=== PATIENT | male | born 1960 | race Caucasian/White ===

== ENCOUNTER 2024-05-14 12:23 | Emergency (ER) | payer OTHER ==
[~2024-05-14] VITALS: Ht 185.4 cm; Wt 102.1 kg
[2024-05-14 12:40] VITALS: TEMP 98.2
[2024-05-14 13:09] LABS: BASOPHILS % (AUTO) 0.4 % (0.0-2.0); EOSINOPHILS # (AUTO) 0.1 K/uL (0.0-0.7); EOSINOPHILS % (AUTO) 0.9 % (0.0-6.0); HEMATOCRIT 39 % (39-51); HEMOGLOBIN 13.6 g/dL (13.5-17.5); LYMPHOCYTES # (AUTO) 0.8 K/uL (0.8-4.8); LYMPHOCYTES % (AUTO) 11.6 % (20.0-44.0); MEAN CORPUSCULAR HEMOGLOBIN 30 PG (26.0-33.0); MEAN CORPUSCULAR HGB CONC 35 g/dl (31.0-36.0); MEAN CORPUSCULAR VOLUME 88 fL (80-96); MONOCYTES # (AUTO) 0.5 K/uL (0.1-1.30); MONOCYTES % (AUTO) 6.5 % (2.0-12.0); NEUTROPHILS # (AUTO) 5.6 K/uL (1.8-8.9); NEUTROPHILS % (AUTO) 80.6 % (43.0-81.0); PLATELET COUNT (AUTO) 197 K/uL (150-450); RED BLOOD CELL COUNT(AUTO) 4.47 MIL/uL (4.5-6.0); RED CELL DISTRIBUTION WIDTH 13.7 % (11.5-15.0); WHITE BLOOD COUNT (AUTO) 6.9 K/uL (4.3-11.0)
[2024-05-14 13:25] LABS: CALCIUM, SERUM 8.7 mg/dL (8.5-10.1); CARBON DIOXIDE 32 mmol/L (21-32); CHLORIDE 103 mmol/L (98-107); CREATININE 1.2 mg/dL (0.6-1.3); GLUCOSE 116 mg/dL (74-106); POTASSIUM 4.2 mmol/L (3.5-5.1); SODIUM SERUM 142 mmol/L (136-145); UREA NITROGEN, BLOOD 19 mg/dL (7-18)
[2024-05-14] MEDS ORDERED: MAG HYDROX/AL HYDROX/SIMETH 30 ML UDC ONE (14:05)
[2024-05-14] MEDS ORDERED: LIDOCAINE VISCOUS 2% UD 15 ML UDC ONE (14:06)
[2024-05-14] MEDS ORDERED: FAMOTIDINE/PF INJ 20 MG/2 ML VIAL IV ONE (14:06)
[2024-05-14] MEDS ORDERED: ASPIRIN EC 81 MG TABLET.DR PO ONE (14:06)
[2024-05-14] MEDS: ASPIRIN 81 MG TAB.CHEW PO ONE (14:52)
[2024-05-14] MEDS: FAMOTIDINE/PF INJ 20 MG/2 ML VIAL IV ONE (14:52)
[2024-05-14] MEDS: LIDOCAINE VISCOUS 2% UD 15 ML UDC MM ONE (14:52)
[2024-05-14] MEDS: MAG HYDROX/AL HYDROX/SIMETH 30 ML UDC PO ONE (14:52)
[2024-05-14] MEDS ORDERED: IV NS 0.9% 250 ML IV ONE (15:55)
[2024-05-14] MEDS ORDERED: CT SWABBABLE VALVE TRANS SET 1 EA INFUS.SET MC ONE (15:55)
[2024-05-14] MEDS ORDERED: IOHEXOL-350 100 ML VIAL IV ONE (15:55)
[2024-05-14] MEDS ORDERED: PANT20TA2 PO (16:58)
[2024-05-14 18:01] VITALS: BP 120/72; O2SAT 96
== END 2024-05-14 17:35 | disposition home or self-care (01) ==
LOC: ER 12:52
DX: R07.89 Other chest pain (principal); R06.02 Shortness of breath; Z88.0 Allergy status to penicillin
CPT/HCPCS: 99285; 75574; 96374; 71045; 85025; 80048; 36415; 84484 ×2; 93005; J3490; J7050; Q9967